=== PATIENT | male | born 1985 | race Asian ===

== ENCOUNTER 2019-05-31 13:43 | Inpatient (IN) | payer OTHER ==
[~2019-05-31] VITALS: Ht 177.8 cm; Wt 78.4 kg
--- NOTE | 2019-05-31 13:54 | NUR ---
PT TO ROOM AT THIS TIME.
[2019-05-31] MEDS ORDERED: SODIUM CHLORIDE FLUSH 10ML SYR IVF ONE (14:00)
--- NOTE | 2019-05-31 14:01 | NUR ---
33 y/o MALE PRESENTS TO ED FROM WITH C/O BRUISING. PT WAS SENT HERE FROM BECAUSE HE GOT A CALL THAT HIS PLATELET COUNT WAS LOW. PT STATES " I STARTED BRUISING AND WENT TO URGENT CARE ABOUT 8 DAYS AGO. I HAVEN'T HAD ANY BLOOD IN MY URINE OR COUGHING IT UP. I JUST NOTICED RANDOM BRUISES. SO I GOT SOME TESTS DONE." NO C/O N/V/D, TRAUMA, SYNCOPE, CP, SOB. PT PLACED ON CONT PULSE OX.,NIBP. EDPA BEDSIDE.
--- NOTE | 2019-05-31 14:15 | NUR ---
PIV ESTABLISHED. PT TOLERATED WITH NO COMPLICATIONS. PT RESTING ON GURNEY. NO ACUTE DISTRESS NOTED. CALL LIGHT WITHIN REACH. PT GIVEN PERSONAL CELL PHONE TO MAKE CALLS. EDPA STATED TO PT THAT HE IS GOING TO BE ADMITTED. PT VERBALIZED UNDERSTANDING REGARDING POC.
[2019-05-31] MEDS ORDERED: SODIUM CHLORIDE 0.9% 1,000ML IVBOLUS ONE (14:30)
[2019-05-31 14:37] LABS: ALANINE AMINOTRANSFERASE 42 U/L (12-78); ALBUMIN 4.2 g/dL (3.4-5.0); ANION GAP 7 mmol/L (5-15); CALCIUM 9.3 mg/dL (8.5-10.1); CHLORIDE 106 mmol/L (98-107); CREATININE 1.02 mg/dL (0.7-1.3)
[2019-05-31 14:39] LABS: ALKALINE PHOSPHATASE 59 U/L (45-117); BILIRUBIN,TOTAL 0.9 mg/dL (0.2-1.0)
[2019-05-31 15:00] LABS: MEAN CORPUSCULAR HEMOGLOBIN 29.8 pg (27.5-34.5); MEAN CORPUSCULAR HGB CONC 33.3 g/dL (33.2-36.2); MEAN CORPUSCULAR VOLUME 89.5 fL (81-97); MEAN PLATELET VOLUME 9.4 fL (7.4-10.4); RED BLOOD COUNT 4.62 x10^6/uL (4.38-5.82); RED CELL DISTRIBUTION WIDTH 13.1 % (9.4-14.8)
[2019-05-31 15:01] LABS: MD YES; PLATELET COUNT 4 x10^3/uL (130-400)
[2019-05-31 15:04] LABS: <PLATELET ESTIMATE> DECREASED; <RBC MORPHOLOGY> NORMAL; BAND#(MANUAL) 0.08 x10^3/uL; BANDS%(MANUAL) 1 % (0-7); BASOS#(MANUAL) 0.08 x10^3/uL (0-0.1); BASOS% (MANUAL) 1 % (0-1); LYMPH#(MANUAL) 3.54 x10^3/uL (1-3.4); LYMPHS% (MANUAL) 46 % (22-44); MONOS#(MANUAL) 0.46 x10^3/uL (0.3-2.7); MONOS% (MANUAL) 6 % (2-9); REACTIVE LYMPHS # (MANUAL) 0.08 x10^3/uL (0-0); REACTIVE LYMPHS % (MANUAL) 1 % (0-0); SEG#(MANUAL) 3.47 x10^3/uL (1.8-6.8); SEGS% (MANUAL) 45 % (42-75)
[2019-05-31 15:05] LABS: <PLT MORPHOLOGY> NORMAL PLT MORPH
[2019-05-31 15:14] LABS: INTERNATIONAL NORMALIZED RATIO 1.04 (0.93-1.1); PROTHROMBIN TIME 10.9 Seconds (9.6-11.5)
--- NOTE | 2019-05-31 15:16 | NUR ---
PT AMBULATORY WITH STEADY GAIT TO BATHROOM. PT REATTACHED TO IVF. NO ACUTE DISTRESS NOTED.
--- NOTE | 2019-05-31 15:17 | NUR ---
BEDSIDE REPORT TO PAVITHRA FUENTES.
[2019-05-31] MEDS ORDERED: DEXAMETHASONE 4 MG TABLET PO ONE (15:30)
--- NOTE | 2019-05-31 15:42 | NUR ---
PLATELETS REQUESTED FROM BLOOD BANK
[2019-05-31] MEDS ORDERED: DEXAMETHASONE 4 MG TABLET ONE (15:46)
[2019-05-31 16:20] VITALS: BP 134/74
--- NOTE | 2019-05-31 16:20 | NUR ---
ADMIT MD AT BEDSIDE
[2019-05-31] MEDS ORDERED: hydrALAzine 20 MG/ML, 1ML IVPush PRN (16:30)
[2019-05-31] MEDS ORDERED: ACETAMINOPHEN 325 MG TABLET PO PRN (16:30)
[2019-05-31] MEDS ORDERED: LABETALOL 5MG/ML, 20ML IVPush PRN (16:30)
[2019-05-31 16:38] VITALS: BP 113/64
[2019-05-31 16:54] VITALS: BP 115/65
[2019-05-31 16:55] LABS: HCT (SEDRATE) 41.3 % (39.2-51.8)
[2019-05-31 16:59] LABS: D-DIMER 0.28 ug/mlFEU (0.00-0.52)
[2019-05-31 17:04] VITALS: BP 106/78
[2019-05-31 19:10] VITALS: BP 117/72
[2019-05-31 23:03] LABS: MEAN CORPUSCULAR HEMOGLOBIN 29.5 pg (27.5-34.5); MEAN CORPUSCULAR HGB CONC 33.1 g/dL (33.2-36.2); MEAN CORPUSCULAR VOLUME 89.2 fL (81-97); RED BLOOD COUNT 4.46 x10^6/uL (4.38-5.82); RED CELL DISTRIBUTION WIDTH 13.3 % (9.4-14.8)
[2019-05-31 23:23] LABS: BASOPHILS % (AUTO) 0 % (0-1); EOSINOPHILS # (AUTO) 0.02 x10^3/uL (0-0.4); EOSINOPHILS % (AUTO) 0 % (1-7); LYMPHOCYTES # (AUTO) 1.45 x10^3/uL (1-3.4); LYMPHOCYTES % (AUTO) 23 % (22-44); MEAN PLATELET VOLUME 9.3 fL (7.4-10.4); MONOCYTES # (AUTO) 0.07 x10^3/uL (0.2-0.8); MONOCYTES % (AUTO) 1 % (2-9); NEUTROPHILS # (AUTO) 4.71 x10^3/uL (1.8-6.8); NEUTROPHILS % (AUTO) 75 % (42-75)
[2019-05-31 23:24] LABS: MD SCAN; PLATELET COUNT 10 x10^3/uL (130-400)
[2019-06-01 00:14] LABS: ALANINE AMINOTRANSFERASE 43 U/L (12-78); ALBUMIN 4.2 g/dL (3.4-5.0); CALCIUM 9.4 mg/dL (8.5-10.1); CREATININE 0.94 mg/dL (0.7-1.3)
[2019-06-01 00:19] LABS: ALKALINE PHOSPHATASE 59 U/L (45-117); ANION GAP 10 mmol/L (5-15); BILIRUBIN,TOTAL 0.6 mg/dL (0.2-1.0); CHLORIDE 110 mmol/L (98-107)
[2019-06-01 01:02] VITALS: BP 114/68
[2019-06-01 04:56] LABS: MEAN CORPUSCULAR HEMOGLOBIN 30.1 pg (27.5-34.5); MEAN CORPUSCULAR HGB CONC 33.7 g/dL (33.2-36.2); MEAN CORPUSCULAR VOLUME 89.4 fL (81-97); RED BLOOD COUNT 4.36 x10^6/uL (4.38-5.82); RED CELL DISTRIBUTION WIDTH 13.1 % (9.4-14.8)
[2019-06-01 05:41] LABS: MEAN PLATELET VOLUME 9.9 fL (7.4-10.4)
[2019-06-01 05:43] LABS: PLATELET COUNT 10 x10^3/uL (130-400)
[2019-06-01 05:47] LABS: BASOPHILS # (AUTO) 0.01 x10^3/uL (0-0.1); BASOPHILS % (AUTO) 0 % (0-1); EOSINOPHILS % (AUTO) 0 % (1-7); LYMPHOCYTES % (AUTO) 32 % (22-44); MD SCAN; MONOCYTES # (AUTO) 0.06 x10^3/uL (0.2-0.8); MONOCYTES % (AUTO) 1 % (2-9); NEUTROPHILS # (AUTO) 3.13 x10^3/uL (1.8-6.8); NEUTROPHILS % (AUTO) 67 % (42-75)
[2019-06-01 07:23] VITALS: BP 123/79
[2019-06-01] MEDS: DEXAMETHASONE 4 MG TABLET PO SCH (08:16)
[2019-06-01] MEDS: INSULIN LISPRO 100 UNITS/ML, PEN SQ-INSULIN SCH ×4 (10:19→21:00)
[2019-06-01 12:15] VITALS: BP 120/72
[2019-06-01 16:02] LABS: ANA SCREEN NEGATIVE (Negative)
[2019-06-01 19:01] LABS: MEAN CORPUSCULAR HEMOGLOBIN 29.8 pg (27.5-34.5); MEAN CORPUSCULAR VOLUME 90.4 fL (81-97); MEAN PLATELET VOLUME 8.5 fL (7.4-10.4); RED BLOOD COUNT 4.48 x10^6/uL (4.38-5.82)
[2019-06-01 19:02] LABS: PLATELET COUNT 35 x10^3/uL (130-400)
[2019-06-01 19:04] LABS: BASOPHILS # (AUTO) 0.03 x10^3/uL (0-0.1); BASOPHILS % (AUTO) 0 % (0-1); EOSINOPHILS % (AUTO) 0 % (1-7); LYMPHOCYTES # (AUTO) 1.47 x10^3/uL (1-3.4); LYMPHOCYTES % (AUTO) 14 % (22-44); MD SCAN; MONOCYTES % (AUTO) 2 % (2-9); NEUTROPHILS # (AUTO) 8.51 x10^3/uL (1.8-6.8); NEUTROPHILS % (AUTO) 83 % (42-75)
[2019-06-01 20:50] VITALS: BP 127/75
[2019-06-02 03:26] VITALS: BP 117/73
[2019-06-02 05:19] LABS: MEAN CORPUSCULAR HGB CONC 33.2 g/dL (33.2-36.2); MEAN CORPUSCULAR VOLUME 90.2 fL (81-97); MEAN PLATELET VOLUME 8.9 fL (7.4-10.4); RED BLOOD COUNT 4.24 x10^6/uL (4.38-5.82); RED CELL DISTRIBUTION WIDTH 13.1 % (9.4-14.8)
[2019-06-02 06:52] LABS: PLATELET COUNT 49 x10^3/uL (130-400)
[2019-06-02 06:53] LABS: BASOPHILS # (AUTO) 0.02 x10^3/uL (0-0.1); BASOPHILS % (AUTO) 0 % (0-1); EOSINOPHILS # (AUTO) 0.16 x10^3/uL (0-0.4); EOSINOPHILS % (AUTO) 1 % (1-7); LYMPHOCYTES # (AUTO) 1.89 x10^3/uL (1-3.4); LYMPHOCYTES % (AUTO) 13 % (22-44); MD SCAN; MONOCYTES # (AUTO) 0.59 x10^3/uL (0.2-0.8); MONOCYTES % (AUTO) 4 % (2-9); NEUTROPHILS # (AUTO) 11.59 x10^3/uL (1.8-6.8); NEUTROPHILS % (AUTO) 81 % (42-75)
[2019-06-02] MEDS: INSULIN LISPRO 100 UNITS/ML, PEN SQ-INSULIN SCH (07:00)
[2019-06-02] MEDS: DEXAMETHASONE 4 MG TABLET PO SCH (07:44)
[2019-06-02 08:39] VITALS: BP 116/68
[2019-06-02] MEDS ORDERED: DEXA4TAB66 PO (10:27)
[2019-06-12] MEDS ORDERED: PRED20TA PO (11:06)
[2019-06-12] MEDS ORDERED: ACET600C6 PO (11:06)
== END 2019-06-02 11:15 | disposition home or self-care (01) | DRG 813 ==
LOC: ED 15:32 → EDIP 15:33 → ED 15:58 → 3NW 17:16 → DCLOUNGE 06-02 11:04
PROVIDERS: ADMIT Internal Medicine; ATTEND Internal Medicine
PROC: 30233R1 Transfusion of Nonautologous Platelets into Peripheral Vein, Percutaneous Approach (ICD-10-PCS; principal; 2019-05-31)
DX: D69.3 Immune thrombocytopenic purpura (principal); D64.9 Anemia, unspecified; D72.829 Elevated white blood cell count, unspecified; F12.90 Cannabis use, unspecified, uncomplicated; T38.0X5A Adverse effect of glucocorticoids and synthetic analogues, initial encounter; Z87.01 Personal history of pneumonia (recurrent)
CPT/HCPCS: 36415; 36430; 76700; 80053; 82607; 82962; 83615; 85025; 85379; 85384; 85610; 85651; 85730; 86038; 86140; 86430; 86705; 86706; 86803; 86850; 86900; 87338; 87340; G0378; J1815; J7030; P9035

== ENCOUNTER 2019-06-07 16:19 | Inpatient (IN) | payer OTHER ==
[~2019-06-07] VITALS: Ht 175.3 cm; Wt 78.0 kg
[2019-06-12 06:40] VITALS: BP 121/71
== END 2019-06-12 12:50 | disposition home or self-care (01) | DRG 813 ==
LOC: ED 17:29 → 3NW 18:00 → DCLOUNGE 06-12 12:27
PROVIDERS: ADMIT Internal Medicine; ATTEND Internal Medicine
PROC: 30233R1 Transfusion of Nonautologous Platelets into Peripheral Vein, Percutaneous Approach (ICD-10-PCS; principal; 2019-06-07)
DX: D69.3 Immune thrombocytopenic purpura (principal); N17.0 Acute kidney failure with tubular necrosis; F10.10 Alcohol abuse, uncomplicated; I10 Essential (primary) hypertension; Z80.1 Family history of malignant neoplasm of trachea, bronchus and lung; Z86.19 Personal history of other infectious and parasitic diseases; Z72.0 Tobacco use; Z71.6 Tobacco abuse counseling
CPT/HCPCS: 36415; 36430; 80048; 80053; 83010; 83735; 85025; 85045; 85049; 85379; 85384; 85610; 85730; 86644; 86645; 86665; 86850; 86880; 86900; 87806; G0378; J1561; G0475; J2796; J7030; J7512; P9035